=== PATIENT | male | born 1980 | race African-American/Black ===

== ENCOUNTER 2016-10-14 13:03 | Inpatient (IN) ==
[2016-10-14] MEDS ORDERED: LACTULOSE 20 GM/30 ML UDCUP PO PRN (15:48)
[2016-10-14] MEDS ORDERED: MYLANTA/LIDO VISC 2:1 300 ML BOTTLE SWISH/SWAL PRN (15:48)
[2016-10-14] MEDS ORDERED: BENZTROPINE 2 MG/2 ML AMP IV PRN (15:48)
[2016-10-14] MEDS ORDERED: MYLANTA/LIDO VISC 2:1 300 ML BOTTLE SWISH/SPIT PRN (15:48)
[2016-10-14] MEDS ORDERED: MAGNESIUM HYDROXIDE SUSP 30 ML UDCUP PO PRN (15:48)
[2016-10-14] MEDS ORDERED: chlorproMAZINE INJ 50 MG in SODIUM CHLORIDE 0.9% 100 ML IV PRN (15:48)
[2016-10-14] MEDS ORDERED: PROMETHAZINE INJ 25 MG in SODIUM CHLORIDE 0.9% 50 ML IV PRN (15:48)
[2016-10-14] MEDS ORDERED: guaiFENesin 200 MG/10 ML UDCUP PO PRN (15:48)
[2016-10-14] MEDS ORDERED: chlorproMAZINE INJ 25 MG in SODIUM CHLORIDE 0.9% 100 ML IV PRN (15:48)
[2016-10-14] MEDS ORDERED: LOPERAMIDE 2 MG CAPSULE PO PRN ×2 (15:48)
[2016-10-14] MEDS ORDERED: ONDANSETRON 4 MG/2 ML VIAL IV PRN (15:48)
[2016-10-14] MEDS ORDERED: TEMAZEPAM 7.5 MG CAPSULE PO PRN (15:48)
[2016-10-14] MEDS ORDERED: ACETAMINOPHEN 325 MG TABLET PO PRN (15:48)
[2016-10-14] MEDS ORDERED: chlorproMAZINE 25 MG TABLET PO PRN (15:48)
[2016-10-14] MEDS ORDERED: ALPRAZolam 0.25 MG TABLET PO PRN (15:48)
[2016-10-14] MEDS ORDERED: traMADol 50 MG TABLET PO PRN (15:48)
[2016-10-14] MEDS ORDERED: diphenhydrAMINE CAP 25 MG CAPSULE PO PRN (15:48)
[2016-10-14] MEDS ORDERED: ALUMINUM/MAGNES/SIMETH MAX STR 30 ML UDCUP PO PRN (15:48)
[2016-10-14] MEDS ORDERED: PALONOSETRON 0.25 MG/5 ML VIAL IV ONE (16:00)
[2016-10-14] MEDS ORDERED: FOSAPREPITANT 150 MG in SODIUM CHLORIDE 0.9% 100 ML IV ONE (16:00)
[2016-10-14] MEDS ORDERED: DEXAMETHASONE 4 MG/1 ML VIAL IV ONE (16:00)
[2016-10-14] MEDS: predniSONE 50 MG TABLET PO SCH (17:22)
[2016-10-14] MEDS: ETOPOSIDE IV SCH (18:10)
[2016-10-14] MEDS: SODIUM CHLORIDE 0.9% IV SCH ×2 (18:10→18:11)
[2016-10-14] MEDS: DOXORUBICIN IV SCH (18:11)
[2016-10-14] MEDS: VINCRISTINE IV SCH (18:11)
--- NOTE | 2016-10-15 09:04 | Oncology History&Physical ---
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 He is responding well at this point. We planned 6 cycles then PET scan. Continuing patient's current regimen of highly active antiretroviral therapy Current Visit: Yes History of Present Illness Chief complaint: Chemotherapy History of present illness: Mr. Valenzuela is a 36 year old male With HIV dating to at least 2009. 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 These treatments were performed in [facility]. Currently he is under treatment for a large cell lymphoma likely HIV related per outside pathologic consultation. He was gravely ill several months earlier but has slowly improved and is gained weight. His pleural effusions and ascites seem to have resolved. He denies any symptoms of congestive heart failure. He was seen yesterday as an initial office consultation and was admitted for cycle 5 chemotherapy Home Medications Medication Instructions Recorded Confirmed Type Dolutegravir Sodium [Tivicay] 50 mg PO BEDTIME 10/14/16 10/14/16 History Emtricitabine/Tenofov 200-300 1 tablet PO BEDTIME 10/14/16 10/14/16 History [Truvada] Allergies Allergy/AdvReac Type Severity Reaction Status Date / Time No Known Allergies Allergy Verified 10/14/16 15:46 Medical,Surgical,& Family Hx - Medical History Cardio: History of: Cardiovascular Problems (excessive fluid around the lungs) Renal: History of: Renal Failure (due to lymphoma of the abd) Gastrointestinal: History of: Bowel Obstruction (lymphoma in the abd) Other: History of: Cancer, HIV - Family History Family History: Reports;: Family Cancer (mother, grandfather,), Family Diabetes (4 aunts,3 uncles), Family Heart Disease (1 aunt, 1 uncle), Family Hypertension (3 uncles, 2 aunts) Denies;: Family Psychiatric Problems, Family Stroke - Social History Smoking Status: Former smoker - EENT Nose, mouth and throat: Absent: dysphagia, epistaxis - Cardiovascular Cardiovascular ROS IM: Absent: chest pain - Respiratory Respiratory: Absent: cough - Gastrointestinal Gastrointestinal: Absent: cramping - Genitourinary Genitourinary ROS male: Absent: difficulty urinating, dysuria Exam - Constitutional Vitals: Period Temp Pulse Resp BP Sys/Smith Pulse Ox Last 24 Hr 97.0 F-97.9 F 72-85 18-20 105-120/62-68 99-100 General appearance: normal weight, no acute distress - Head Head Exam: Present: normal inspection, normocephalic, atraumatic - Eye Eye Exam: Present: EOMI. Absent: conjunctival injection Pupils: Present: normal accommodation - ENT ENT exam: Present: normal external ear exam - Neck Neck exam: Absent: tenderness, thyromegaly - Respiratory Respiratory exam: Present: CTAB. Absent: accessory muscle use, chest wall tenderness - GI/Abdominal GI/Abdominal exam: Absent: ascites, distended, guarding - Extremities Exam Extremities exam: Present: normal capillary refill - Neurological Exam Neurological exam: Present: alert, oriented X3 - Psychiatric Psychiatric exam: Present: normal affect, normal mood - Skin Skin exam: Present: warm, dry
[2016-10-15] MEDS: predniSONE 50 MG TABLET PO SCH (09:42)
[2016-10-15] MEDS: DOXORUBICIN IV SCH (17:39)
[2016-10-15] MEDS: VINCRISTINE IV SCH (17:39)
[2016-10-15] MEDS: SODIUM CHLORIDE 0.9% IV SCH ×2 (17:39→17:42)
[2016-10-15] MEDS: ETOPOSIDE IV SCH (17:42)
[2016-10-16] MEDS: predniSONE 50 MG TABLET PO SCH (08:50)
--- NOTE | 2016-10-16 09:06 | Oncology Progress Note ---
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 He is responding well at this point. We planned 6 cycles then PET scan. Continuing patient's current regimen of highly active antiretroviral therapy Current Visit: Yes Oncology Subjective PN Interval history: Day 3 cycle 5 chemotherapy for CD20 negative HIV related large cell lymphoma. The patient remains nontoxic appearing. He is pleasant awake alert cooperative and interactive. He was ambulated in the halls saw him yesterday. He is afebrile. His lungs are clear to auscultation bilaterally. His abdomen is flat with no ascites or obvious organomegaly. Continuing infusional chemotherapy without modification at this time Exam - Constitutional Vitals: Period Temp Pulse Resp BP Sys/Smtih Pulse Ox Last 24 Hr 96.1 F-98.0 F 72-90 20-25 106-129/63-72 99-100
[2016-10-16] MEDS: ETOPOSIDE IV SCH (18:26)
[2016-10-16] MEDS: SODIUM CHLORIDE 0.9% IV SCH ×2 (18:26→18:27)
[2016-10-16] MEDS: VINCRISTINE IV SCH (18:27)
[2016-10-16] MEDS: DOXORUBICIN IV SCH (18:27)
[2016-10-17 05:57] LABS: Eosinophils % 0.1 % (0.00-10.9); Hematocrit 27.2 VOL% (42.0-52.0); Hemoglobin 8.6 GM/DL (14.0-18.0); Immature Granulocytes % 0.6 %; Immature Granulocytes Absolute 0.04 #; Lymphocytes # 1.3 10*3/uL (1.4-4.0); Lymphocytes % 18.9 % (21.2-54.2); Mean Corpuscular HGB Conc 31.6 GM/DL (32-36); Mean Corpuscular Hemoglobin 33 PG (27-34); Mean Corpuscular Volume 104.6 FL (87-102); Mean Platelet Volume 11.4 FL (9.6-12.0); Monocytes % 14.3 % (1.7-12.7); Neutrophils # 4.5 10*3/uL (1.4-7.4); Neutrophils % 66.1 % (38.7-73.9); Platelet Count 121 10*3/uL (130-400); Red Cell Distribution Width 17.2 % (9.3-17.3); White Blood Count 6.7 10*3/uL (4.5-13.71)
[2016-10-17 06:56] LABS: Bilirubin,Total 0.4 MG/DL (0.2-1.0); Calcium 8.1 MG/DL (8.5-10.1); Magnesium 1.9 MG/DL (1.8-2.4); Osmolality,Calculated 293.7 MOS/KG (273-304); Potassium 4.2 MMOL/L (3.5-5.1); Total Protein 6.2 G/DL (6.4-8.3)
[2016-10-17] MEDS: predniSONE 50 MG TABLET PO SCH (09:24)
--- NOTE | 2016-10-17 09:25 | Oncology Progress Note ---
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 He is responding well at this point. We planned 6 cycles then PET scan. Continuing patient's current regimen of highly active antiretroviral therapy Current Visit: Yes Oncology Subjective PN Interval history: Today for chemotherapy for disseminated and aggressive HIV related lymphoma. Patient is without complaints. To new chemotherapy with benign physical examination at this time with plans for discharge tomorrow Exam - Constitutional Vitals: Period Temp Pulse Resp BP Sys/Smith Pulse Ox Last 24 Hr 96.9 F-97.6 F 58-69 18-20 111-127/61-74 99-100 Results - Labs CBC & BMP: 10/17/16 05:00 10/17/16 05:00
[2016-10-17] MEDS: SODIUM CHLORIDE 0.9% IV SCH ×2 (18:57→18:58)
[2016-10-17] MEDS: ETOPOSIDE IV SCH (18:57)
[2016-10-17] MEDS: VINCRISTINE IV SCH (18:58)
[2016-10-17] MEDS: DOXORUBICIN IV SCH (18:58)
--- NOTE | 2016-10-18 05:19 | Discharge Summary ---
Hospital Course - Hospital Course Hospital Course: Patient with HIV related lymphoma admitted for cycle #5 Epoch infusional chemotherapy. He also gives a history of previous Kaposi's sarcoma with both chemo and radiation. He is tolerating the therapy well with no adverse events. Labs reviewed from yesterday with some degree of anemia. His physical exam at this time is unremarkable. He will receive Neulasta tomorrow with an appointment made for repeat chemotherapy evaluation on November 04. 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 Status: Acute Specialty Discharge - Follow Up or Referrals Follow up with: Gurmeet Kennedy MD [Primary Care Provider] - (HAVE LAB WORK AT DR KENNEDY OFFICE ON NOV.04 ANYTIME BETWEEN 730AM-330PM) Discharge Plan - Discharge Medications New HYDROcodone/ACETAMIN 5-325 [Gazelle 5-325] 1 tablet PO Q4H PRN #30 tablet PRN Reason: Pain Moderate (4-7) Continue Emtricitabine/Tenofov 200-300 [Truvada] 1 tablet PO BEDTIME Dolutegravir Sodium [Tivicay] 50 mg PO BEDTIME - Follow Up or Referral Follow Up: Gurmeet Kennedy MD [Primary Care Provider] - (HAVE LAB WORK AT DR KENNEDY OFFICE ON NOV.04 ANYTIME BETWEEN 730AM-330PM) - Forms/Instructions Exam - Constitutional Vitals: Period Temp Pulse Resp BP Sys/Smith Pulse Ox Last 24 Hr 97.1 F-98.4 F 57-73 18-20 112-125/64-76 99-100 Discharge Results Procedures and tests throughout hospitalization: Pending Orders 10/16/16 19:00 HIV-1 RNA Quantification, P Routine 10/17/16 05:00 CD4 T-Cell Count Routine Labs on day of discharge: Labs from last 24 hours 10/17/16 10/17/16 05:00 05:00 WBC 6.7 RBC 2.60 L Hgb 8.6 L Hct 27.2 L MCV 104.6 H MCH 33 MCHC 31.6 L RDW 17.2 Plt Count 121 L MPV 11.4 Neut % (Auto) 66.1 Lymph % (Auto) 18.9 L [place] % (Auto) 14.3 H Eos % (Auto) 0.1 Baso % (Auto) 0.0 Neut # (Auto) 4.5 Lymph # (Auto) 1.3 L [place] # (Auto) 1.0 H Eos # (Auto) 0.0 Baso # (Auto) 0.0 Immature Gran % 0.6 Nucleated RBC % 0.0 Immature Gran # 0.04 Nucleated RBCs # 0.00 Sodium 145 Potassium 4.2 Chloride 115 H Carbon Dioxide 21 Anion Gap 13.2 BUN 32 H Creatinine 1.30 GFR Calculation 90 BUN/Creatinine Ratio 24.00 H Glucose 82 Calculated Osmolality 293.7 Calcium 8.1 L Magnesium 1.9 Total Bilirubin 0.40 AST 9 ALT 17 Alkaline Phosphatase 81 Lactate Dehydrogenase 99 Total Protein 6.2 L Albumin 3.0 L Globulin 3.2 Albumin/Globulin Ratio 0.9 L DS: Provider Date of admission: 10/14/16 15:48 Primary care physician: Gurmeet Kennedy MD Attending physician on admission: Gurmeet Kennedy MD Consults: 10/14/16 16:25 Consult to Pharmacy [CONS] Routine Reason for Pharmacy Consult: Adjust Meds Renal Funct Discharging clinician: Gurmeet Kennedy MD
[2016-10-18] MEDS ORDERED: SODIUM CHLORIDE 0.9% IV ONE (09:00)
[2016-10-18] MEDS ORDERED: CYCLOPHOSPHAMIDE IV ONE (09:00)
[2016-10-18] MEDS: predniSONE 50 MG TABLET PO SCH (10:53)
[2016-10-18] MEDS ORDERED: predniSONE 50 MG TABLET PO SCH (11:00)
[2016-10-18 20:33] VITALS: BP 130/77
[2016-10-19 15:30] LABS: 4/8 Ratio 0.2 (>=0.9)
== END 2016-10-18 23:10 | disposition home or self-care (01) | DRG 846 ==
LOC: N.4E 15:15
PROVIDERS: ADMIT Specialist; ATTEND Specialist

== ENCOUNTER 2017-11-18 15:27 | Inpatient (IN) ==
[2017-11-18] MEDS ORDERED: ONDANSETRON 4 MG/2 ML VIAL IV STA (17:12)
[2017-11-18] MEDS ORDERED: HYDROmorphone 2 MG/1 ML VIAL IV STA (17:12)
[2017-11-18] MEDS ORDERED: KETOROLAC 30 MG/1 ML VIAL IV STA (17:12)
[2017-11-18] MEDS ORDERED: SODIUM CHLORIDE 0.9% 1,000 ML IV STA (17:12)
[2017-11-18] MEDS ORDERED: KETOROLAC 30 MG/1 ML VIAL ONE (17:18)
[2017-11-18] MEDS ORDERED: HYDROmorphone 2 MG/1 ML VIAL ONE (17:18)
[2017-11-18] MEDS ORDERED: ONDANSETRON 4 MG/2 ML VIAL ONE (17:19)
[2017-11-18 17:23] LABS: Basophils % 0.4 % (0.0-0.8); Eosinophils # 0.1 10*3/uL (0.0-0.87); Eosinophils % 1.9 % (0.00-10.9); Hematocrit 33.4 VOL% (42.0-52.0); Hemoglobin 11.7 GM/DL (14.0-18.0); Immature Granulocytes % 0.6 %; Immature Granulocytes Absolute 0.03 #; Lymphocytes # 1.2 10*3/uL (1.4-4.0); Lymphocytes % 25.7 % (21.2-54.2); Mean Corpuscular Hemoglobin 32 PG (27-34); Mean Corpuscular Volume 92.5 FL (87-102); Mean Platelet Volume 12.4 FL (9.6-12.0); Monocytes # 1.2 10*3/uL (0.11-0.8); Monocytes % 24.9 % (1.7-12.7); Neutrophils # 2.2 10*3/uL (1.4-7.4); Neutrophils % 46.5 % (38.7-73.9); Red Blood Count 3.61 MC/CUMM (3.8-5.5); Red Cell Distribution Width 12.9 % (9.3-17.3); White Blood Count 4.7 T/CUMM (4-12)
[2017-11-18 17:25] LABS: Apearance,Urine CLOUDY (Clear); Bilirubin,Urine Negative (Negative); Blood, Urine Large mg/dL (Negative); Glucose,Urine (UA) 50 mg/dL (Negative); Ketones,Urine 5 mg/dL (Negative); Nitrite,Urine Negative (Negative); Protein,Urine >=500 MG/DL; RBC,Urine 1370 /HPF (0-4); Squamous Epithelial Cell,Urine Occasional /HPF (0-10); Urine Color Red (Yellow); Urine Specific Gravity 1.018 (1.001-1.035); Urine Urobilinogen < 2.0 EU/DL (0.2-1.0); WBC,Urine 11 /HPF (0-6)
[2017-11-18 17:32] LABS: Platelet Count 91 T/CUMM (130-400)
[2017-11-18 17:43] LABS: Albumin 3.8 G/DL (3.4-5.0); Bilirubin,Total 0.5 MG/DL (0.2-1.0); Calcium 8.6 MG/DL (8.5-10.1); Osmolality,Calculated 280.8 MOS/KG (273-304); Potassium 5.1 MMOL/L (3.5-5.1); Total Protein 9.6 G/DL (6.4-8.3)
[2017-11-18 18:13] LABS: Lactic Acid 0.9 MMOL/L (0.4-2.0)
[2017-11-18 18:21] LABS: Platelet Estimate Decreased
[2017-11-18] MEDS ORDERED: PROMETHAZINE INJ 25 MG in SODIUM CHLORIDE 0.9% 50 ML IV PRN (19:50)
[2017-11-18] MEDS ORDERED: ACETAMINOPHEN 325 MG TABLET PO PRN (19:50)
[2017-11-18] MEDS ORDERED: MYLANTA/LIDO VISC 2:1 300 ML BOTTLE SWISH/SPIT PRN (19:50)
[2017-11-18] MEDS ORDERED: MAGNESIUM HYDROXIDE SUSP 30 ML UDCUP PO PRN (19:50)
[2017-11-18] MEDS ORDERED: ONDANSETRON 4 MG/2 ML VIAL IV PRN (19:50)
[2017-11-18] MEDS ORDERED: ALPRAZolam 0.25 MG TABLET PO PRN (19:50)
[2017-11-18] MEDS ORDERED: ALUMINUM/MAGNES/SIMETH MAX STR 30 ML UDCUP PO PRN (19:50)
[2017-11-18] MEDS ORDERED: traMADol 50 MG TABLET PO PRN (19:50)
[2017-11-18] MEDS ORDERED: MYLANTA/LIDO VISC 2:1 300 ML BOTTLE SWISH/SWAL PRN (19:50)
[2017-11-18] MEDS ORDERED: LACTULOSE 20 GM/30 ML UDCUP PO PRN (19:50)
[2017-11-18] MEDS: SODIUM CHLORIDE 0.9% 1,000 ML IV SCH (20:59)
[2017-11-18] MEDS: TEMAZEPAM 7.5 MG CAPSULE PO PRN (21:03)
[2017-11-18 22:31] LABS: Albumin 3.3 G/DL (3.4-5.0); Bilirubin,Total 0.5 MG/DL (0.2-1.0); Calcium 7.9 MG/DL (8.5-10.1); Osmolality,Calculated 287.4 MOS/KG (273-304); Potassium 5.1 MMOL/L (3.5-5.1); Total Protein 8.3 G/DL (6.4-8.3); Uric Acid 15.8 MG/DL (3.5-7.2)
[2017-11-18 22:42] LABS: Basophils % 0.5 % (0.0-0.8); Eosinophils # 0.1 10*3/uL (0.0-0.87); Eosinophils % 2.7 % (0.00-10.9); Hematocrit 26.8 VOL% (42.0-52.0); Hemoglobin 9.2 GM/DL (14.0-18.0); Immature Granulocytes % 0.5 %; Immature Granulocytes Absolute 0.02 #; Lymphocytes # 1.1 10*3/uL (1.4-4.0); Lymphocytes % 28.1 % (21.2-54.2); Mean Corpuscular HGB Conc 34.3 GM/DL (32-36); Mean Corpuscular Hemoglobin 31 PG (27-34); Mean Corpuscular Volume 91.5 FL (87-102); Mean Platelet Volume 12.2 FL (9.6-12.0); Monocytes % 25.7 % (1.7-12.7); Neutrophils # 1.7 10*3/uL (1.4-7.4); Neutrophils % 42.5 % (38.7-73.9); Platelet Count 84 T/CUMM (130-400); Red Blood Count 2.93 MC/CUMM (3.8-5.5); White Blood Count 4.1 T/CUMM (4-12)
[2017-11-19 01:44] LABS: Eosinophils 3 % (0-10); Lymphocytes 26 % (20-55); Segmented Neutrophils 53 % (50-85); Total Cells Counted 100
[2017-11-19 01:45] LABS: Platelet Estimate Decreased
[2017-11-19 01:47] LABS: Hypochromasia Slight
[2017-11-19 04:34] LABS: Apearance,Urine CLOUDY (Clear); Bilirubin,Urine Negative (Negative); Blood, Urine Moderate mg/dL (Negative); Glucose,Urine (UA) 50 mg/dL (Negative); Ketones,Urine 5 mg/dL (Negative); Nitrite,Urine Negative (Negative); Protein,Urine 100 MG/DL; RBC,Urine 1746 /HPF (0-4); Urine Color Red (Yellow); Urine Specific Gravity 1.013 (1.001-1.035); Urine Urobilinogen < 2.0 EU/DL (0.2-1.0); WBC,Urine 175 /HPF (0-6)
[2017-11-19] MEDS: SODIUM CHLORIDE 0.9% 1,000 ML IV SCH ×2 (07:00→19:55)
[2017-11-19] MEDS ORDERED: MIDAZOLAM 2 MG/2 ML VIAL IV ONE (14:26)
[2017-11-19] MEDS ORDERED: DIAZEPAM 5 MG TABLET PO ONE (14:26)
[2017-11-19] MEDS ORDERED: fentaNYL 100 MCG/2 ML VIAL IV ONE (14:26)
[2017-11-19] MEDS ORDERED: fentaNYL 100 MCG/2 ML VIAL ONE (15:24)
[2017-11-19] MEDS ORDERED: MIDAZOLAM 2 MG/2 ML VIAL ONE (15:25)
[2017-11-19] MEDS ORDERED: LEVOFLOXACIN INJ 500 MG in PREMIX 1 EACH IV ONE (15:56)
[2017-11-19] MEDS ORDERED: LEVOFLOXACIN INJ 100 ML IV ONE (15:58)
[2017-11-19] MEDS: TEMAZEPAM 7.5 MG CAPSULE PO PRN (21:32)
[2017-11-20 05:41] LABS: Basophils % 0.3 % (0.0-0.8); Eosinophils # 0.1 10*3/uL (0.0-0.87); Eosinophils % 2.6 % (0.00-10.9); Hematocrit 25.6 VOL% (42.0-52.0); Hemoglobin 8.7 GM/DL (14.0-18.0); Immature Granulocytes % 0.6 %; Immature Granulocytes Absolute 0.02 #; Lymphocytes # 0.9 10*3/uL (1.4-4.0); Lymphocytes % 28.1 % (21.2-54.2); Mean Corpuscular Hemoglobin 31 PG (27-34); Mean Corpuscular Volume 92.4 FL (87-102); Mean Platelet Volume 11.4 FL (9.6-12.0); Monocytes % 31.9 % (1.7-12.7); Neutrophils # 1.1 10*3/uL (1.4-7.4); Neutrophils % 36.5 % (38.7-73.9); Red Blood Count 2.77 MC/CUMM (3.8-5.5); White Blood Count 3.1 T/CUMM (4-12)
[2017-11-20 05:43] LABS: Platelet Count 86 T/CUMM (130-400)
[2017-11-20 06:00] LABS: Giant Platelets Few; Hypochromasia 1+; Platelet Estimate Decreased
[2017-11-20 06:01] LABS: Microcytosis Slight
[2017-11-20 06:10] LABS: Albumin 2.8 G/DL (3.4-5.0); Bilirubin,Total 0.5 MG/DL (0.2-1.0); Calcium 8.4 MG/DL (8.5-10.1); Osmolality,Calculated 300.7 MOS/KG (273-304); Potassium 4.8 MMOL/L (3.5-5.1); Total Protein 7.7 G/DL (6.4-8.3); Uric Acid 15.6 MG/DL (3.5-7.2)
[2017-11-20] MEDS: SODIUM CHLORIDE 0.9% 1,000 ML IV SCH (06:24)
[2017-11-20 07:22] LABS: Apearance,Urine CLEAR (Clear); Bacteria,Urine Occasional /HPF (Few); Bilirubin,Urine Negative (Negative); Blood, Urine Large mg/dL (Negative); Glucose,Urine (UA) Negative (Negative); Ketones,Urine Negative (Negative); Nitrite,Urine Negative (Negative); Protein,Urine Negative; RBC,Urine 18 /HPF (0-4); Urine Color Straw (Yellow); Urine Specific Gravity 1.005 (1.001-1.035); Urine Urobilinogen < 2.0 EU/DL (0.2-1.0); WBC,Urine 2 /HPF (0-6)
[2017-11-20] MEDS ORDERED: HYDROmorphone 2 MG/1 ML VIAL IV PRN (17:41)
[2017-11-20] MEDS: HYDROmorphone 2 MG/1 ML VIAL IV PRN (18:02)
[2017-11-21] MEDS: HYDROmorphone 2 MG/1 ML VIAL IV PRN ×3 (00:43→15:18)
[2017-11-21 05:28] LABS: Basophils % 0.2 % (0.0-0.8); Eosinophils # 0.1 10*3/uL (0.0-0.87); Eosinophils % 2.2 % (0.00-10.9); Hematocrit 26.8 VOL% (42.0-52.0); Hemoglobin 9.2 GM/DL (14.0-18.0); Immature Granulocytes % 0.4 %; Immature Granulocytes Absolute 0.02 #; Lymphocytes # 1.4 10*3/uL (1.4-4.0); Lymphocytes % 26.5 % (21.2-54.2); Mean Corpuscular HGB Conc 34.3 GM/DL (32-36); Mean Corpuscular Hemoglobin 32 PG (27-34); Mean Corpuscular Volume 92.7 FL (87-102); Mean Platelet Volume 10.9 FL (9.6-12.0); Monocytes # 0.9 10*3/uL (0.11-0.8); Monocytes % 17.8 % (1.7-12.7); Neutrophils # 2.7 10*3/uL (1.4-7.4); Neutrophils % 52.9 % (38.7-73.9); Platelet Count 98 T/CUMM (130-400); Red Blood Count 2.89 MC/CUMM (3.8-5.5); Red Cell Distribution Width 13.2 % (9.3-17.3); White Blood Count 5.1 T/CUMM (4-12)
[2017-11-21 05:48] LABS: Band Neutrophils 4 % (0-10); Eosinophils 2 % (0-10); Lymphocytes 31 % (20-55); Macrocytosis 1+; Platelet Estimate Decreased; Segmented Neutrophils 55 % (50-85); Total Cells Counted 100
[2017-11-21 06:06] LABS: Bilirubin,Total 0.7 MG/DL (0.2-1.0); Calcium 8.5 MG/DL (8.5-10.1); Osmolality,Calculated 291.7 MOS/KG (273-304); Total Protein 8.3 G/DL (6.4-8.3)
[2017-11-21] MEDS ORDERED: ALLOPURINOL 100 MG TABLET PO SCH (09:30)
[2017-11-21] MEDS ORDERED: SODIUM CHLORIDE 0.45% 1,000 ML IV SCH (09:30)
[2017-11-21 16:54] VITALS: BP 125/79
[2017-11-21] MEDS ORDERED: HEPARIN LOCK FLUSH 500 UNIT/5 ML SYRINGE IV ONE (17:48)
== END 2017-11-21 17:58 | disposition hospice, home (50) | DRG 682 ==
LOC: N.ED 15:27 → N.EDINP 19:31 → N.4E 19:47
PROVIDERS: ADMIT Specialist; ATTEND Specialist

== ENCOUNTER 2018-01-12 17:20 | Inpatient (IN) ==
[2018-01-12 20:31] LABS: Basophils % 0.1 % (0.0-0.8); Hematocrit 19.7 VOL% (42.0-52.0); Hemoglobin 6.5 GM/DL (14.0-18.0); Immature Granulocytes % 2.8 %; Immature Granulocytes Absolute 0.19 #; Lymphocytes # 1.5 10*3/uL (1.4-4.0); Lymphocytes % 21.6 % (21.2-54.2); Mean Corpuscular Hemoglobin 28 PG (27-34); Mean Corpuscular Volume 84.5 FL (87-102); Mean Platelet Volume 12.3 FL (9.6-12.0); Monocytes % 43.9 % (1.7-12.7); Neutrophils # 2.1 10*3/uL (1.4-7.4); Neutrophils % 31.6 % (38.7-73.9); Platelet Count 100 T/CUMM (130-400); Red Blood Count 2.33 MC/CUMM (3.8-5.5); Red Cell Distribution Width 24.4 % (9.3-17.3); White Blood Count 6.8 T/CUMM (4-12)
[2018-01-12 20:35] LABS: INR 1.1
[2018-01-12 20:44] LABS: Albumin 2.1 G/DL (3.4-5.0); Bilirubin,Total 0.4 MG/DL (0.2-1.0); Calcium 7.8 MG/DL (8.5-10.1); Osmolality,Calculated 257.1 MOS/KG (273-304); Potassium 4.2 MMOL/L (3.5-5.1); Total Protein 6.5 G/DL (6.4-8.3)
[2018-01-12] MEDS ORDERED: SODIUM CHLORIDE 0.9% 1,000 ML IV PRN ×2 (21:08→23:40)
[2018-01-12] MEDS ORDERED: MORPHINE 4 MG/1 ML VIAL IV STA (21:31)
[2018-01-12] MEDS ORDERED: ONDANSETRON 4 MG/2 ML VIAL IV STA (21:32)
[2018-01-12] MEDS ORDERED: ONDANSETRON 4 MG/2 ML VIAL ONE (21:44)
[2018-01-12] MEDS ORDERED: MORPHINE 4 MG/1 ML VIAL ONE (21:44)
[2018-01-12 22:56] LABS: Eosinophils 2 % (0-10); Lymphocytes 18 % (20-55); Myelocytes 3 %; Segmented Neutrophils 46 % (50-85); Total Cells Counted 100
[2018-01-12 22:58] LABS: Platelet Estimate Decreased; Polychromasia Few
[2018-01-12 23:00] LABS: Anisocytosis 1+
[2018-01-12] MEDS ORDERED: ACETAMINOPHEN 325 MG TABLET PO PRN (23:35)
[2018-01-13] MEDS ORDERED: ACETAMINOPHEN 325 MG TABLET ONE (00:16)
[2018-01-13] MEDS ORDERED: Emtricitabine/Tenofov Alafenam [Descovy 200-25 Mg Tablet] PO SCH (00:28)
[2018-01-13] MEDS ORDERED: (Dolutegravir Sodium [Tivicay] 50 MG) PO SCH (00:28)
[2018-01-13] MEDS: SODIUM CHLORIDE 0.9% 1,000 ML IV SCH ×2 (00:48→13:33)
[2018-01-13] MEDS: MORPHINE 4 MG/1 ML VIAL IV PRN ×3 (03:59→21:29)
[2018-01-13] MEDS ORDERED: CEFEPIME 1,000 MG in SYRINGE 1 EACH IV SCH (08:00)
[2018-01-13] MEDS: PANTOPRAZOLE 40 MG TABLET PO SCH (08:14)
[2018-01-13] MEDS: ALLOPURINOL 100 MG TABLET PO SCH (08:14)
[2018-01-13] MEDS: FERROUS SULFATE 325 MG TABLET PO SCH (08:14)
[2018-01-13] MEDS: ACETAMINOPHEN 500 MG TABLET PO PRN (08:14)
[2018-01-13 08:38] LABS: Basophils % 0.3 % (0.0-0.8); Hematocrit 23.3 VOL% (42.0-52.0); Immature Granulocytes Absolute 0.16 #; Lymphocytes # 1.3 10*3/uL (1.4-4.0); Lymphocytes % 16.9 % (21.2-54.2); Mean Corpuscular HGB Conc 33.9 GM/DL (32-36); Mean Corpuscular Hemoglobin 29 PG (27-34); Mean Platelet Volume 12.1 FL (9.6-12.0); Monocytes # 2.9 10*3/uL (0.11-0.8); Monocytes % 36.7 % (1.7-12.7); Neutrophils # 3.5 10*3/uL (1.4-7.4); Neutrophils % 44.1 % (38.7-73.9); Platelet Count 91 T/CUMM (130-400); Red Blood Count 2.74 MC/CUMM (3.8-5.5); Red Cell Distribution Width 21.1 % (9.3-17.3); White Blood Count 7.9 T/CUMM (4-12)
[2018-01-13 08:39] LABS: Hemoglobin 7.9 GM/DL (14.0-18.0)
[2018-01-13 09:02] LABS: Calcium 7.6 MG/DL (8.5-10.1); Osmolality,Calculated 261.7 MOS/KG (273-304); Potassium 4.2 MMOL/L (3.5-5.1)
[2018-01-13 09:07] LABS: Band Neutrophils 3 % (0-10); Giant Platelets Few; Hypochromasia 1+; Lymphocytes 8 % (20-55); Ovalocytes Slight; Platelet Estimate Decreased; Segmented Neutrophils 50 % (50-85); Total Cells Counted 100
[2018-01-13 09:08] LABS: Microcytosis 1+
[2018-01-13 09:19] LABS: Amorphous Crystals,Urine Occasional /HPF (Few); Apearance,Urine CLOUDY (Clear); Bilirubin,Urine Negative (Negative); Blood, Urine Moderate mg/dL (Negative); Glucose,Urine (UA) Negative (Negative); Ketones,Urine 5 mg/dL (Negative); Mucus,Urine Occasional /LPF (Occasional); Nitrite,Urine Negative (Negative); Protein,Urine 100 MG/DL; RBC,Urine 12 /HPF (0-4); Urine Color Yellow (Yellow); Urine Specific Gravity 1.008 (1.001-1.035); Urine Urobilinogen < 2.0 EU/DL (0.2-1.0)
[2018-01-13] MEDS: VANCOMYCIN INJ 1,000 MG in SODIUM CHLORIDE 0.9% 250 ML IV SCH ×2 (09:22→21:25)
[2018-01-13] MEDS ORDERED: MAGNESIUM SULF RIDER 4 GM in PREMIX 1 EACH IV PRN (09:37)
[2018-01-13] MEDS ORDERED: SODIUM CHLORIDE 0.9% 1,000 ML IV PRN (09:38)
[2018-01-13] MEDS: MAGNESIUM SULF RIDER 2 GM in PREMIX 1 EACH IV PRN (13:35)
[2018-01-13] MEDS: CEFEPIME 1,000 MG in SYRINGE 1 EACH IV SCH (17:28)
[2018-01-13] MEDS: ONDANSETRON 4 MG/2 ML VIAL IV PRN (21:29)
[2018-01-13] MEDS ORDERED: metroNIDAZOLE INJ 500 MG in PREMIX 1 EACH IV SCH (23:00)
[2018-01-14] MEDS: CEFEPIME 1,000 MG in SYRINGE 1 EACH IV SCH ×2 (01:45→09:17)
[2018-01-14] MEDS: SODIUM CHLORIDE 0.9% 1,000 ML IV SCH ×3 (02:10→18:16)
[2018-01-14] MEDS: ONDANSETRON 4 MG/2 ML VIAL IV PRN (05:20)
[2018-01-14] MEDS: MORPHINE 4 MG/1 ML VIAL IV PRN ×3 (05:23→18:34)
[2018-01-14 05:38] LABS: Basophils % 0.1 % (0.0-0.8); Eosinophils % 0.1 % (0.00-10.9); Hematocrit 23.9 VOL% (42.0-52.0); Immature Granulocytes % 2.5 %; Immature Granulocytes Absolute 0.19 #; Lymphocytes # 1.4 10*3/uL (1.4-4.0); Lymphocytes % 18.2 % (21.2-54.2); Mean Corpuscular HGB Conc 33.5 GM/DL (32-36); Mean Corpuscular Hemoglobin 29 PG (27-34); Mean Corpuscular Volume 85.1 FL (87-102); Mean Platelet Volume 10.9 FL (9.6-12.0); Monocytes % 38.1 % (1.7-12.7); Neutrophils # 3.2 10*3/uL (1.4-7.4); Red Blood Count 2.81 MC/CUMM (3.8-5.5); Red Cell Distribution Width 20.6 % (9.3-17.3); White Blood Count 7.8 T/CUMM (4-12)
[2018-01-14 05:41] LABS: Platelet Count 74 T/CUMM (130-400)
[2018-01-14 06:13] LABS: Albumin 1.7 G/DL (3.4-5.0); Bilirubin,Total 0.5 MG/DL (0.2-1.0); Calcium 7.6 MG/DL (8.5-10.1); Osmolality,Calculated 270.1 MOS/KG (273-304); Potassium 3.9 MMOL/L (3.5-5.1); Total Protein 5.5 G/DL (6.4-8.3)
[2018-01-14 06:20] LABS: Band Neutrophils 15 % (0-10); Lymphocytes 8 % (20-55); Segmented Neutrophils 64 % (50-85); Total Cells Counted 100
[2018-01-14 06:21] LABS: Anisocytosis 1+; Poikilocytosis 1+
[2018-01-14] MEDS: FERROUS SULFATE 325 MG TABLET PO SCH (09:16)
[2018-01-14] MEDS: PANTOPRAZOLE 40 MG TABLET PO SCH (09:17)
[2018-01-14] MEDS: ALLOPURINOL 100 MG TABLET PO SCH (09:17)
[2018-01-14] MEDS: VANCOMYCIN INJ 1,000 MG in SODIUM CHLORIDE 0.9% 250 ML IV SCH (09:25)
[2018-01-14] MEDS: VANCOMYCIN 50 MG/ML 60 ML/BOTTLE PO SCH ×3 (09:59→21:08)
[2018-01-14 12:15] LABS: Troponin I Only < 0.015 NG/ML (0.00-0.045)
[2018-01-15] MEDS: MORPHINE 4 MG/1 ML VIAL IV PRN ×4 (00:14→21:08)
[2018-01-15] MEDS: SODIUM CHLORIDE 0.9% 1,000 ML IV SCH ×4 (00:20→22:07)
[2018-01-15] MEDS: ACETAMINOPHEN 500 MG TABLET PO PRN ×2 (00:52→18:00)
[2018-01-15] MEDS: VANCOMYCIN 50 MG/ML 60 ML/BOTTLE PO SCH ×4 (03:24→21:07)
[2018-01-15 03:50] LABS: Basophils % 0.1 % (0.0-0.8); Hematocrit 24.7 VOL% (42.0-52.0); Hemoglobin 8.2 GM/DL (14.0-18.0); Immature Granulocytes % 2.5 %; Immature Granulocytes Absolute 0.25 #; Lymphocytes % 19.7 % (21.2-54.2); Mean Corpuscular HGB Conc 33.2 GM/DL (32-36); Mean Corpuscular Hemoglobin 29 PG (27-34); Mean Corpuscular Volume 86.1 FL (87-102); Mean Platelet Volume 12.5 FL (9.6-12.0); Monocytes # 3.6 10*3/uL (0.11-0.8); Monocytes % 35.6 % (1.7-12.7); Neutrophils # 4.2 10*3/uL (1.4-7.4); Neutrophils % 42.1 % (38.7-73.9); Red Blood Count 2.87 MC/CUMM (3.8-5.5); Red Cell Distribution Width 20.7 % (9.3-17.3)
[2018-01-15 03:52] LABS: Platelet Count 70 T/CUMM (130-400)
[2018-01-15 04:20] LABS: Osmolality,Calculated 273.1 MOS/KG (273-304); Potassium 3.9 MMOL/L (3.5-5.1)
[2018-01-15 05:00] LABS: Band Neutrophils 1 % (0-10); Eosinophils 1 % (0-10); Hypochromasia 1+; Lymphocytes 14 % (20-55); Ovalocytes Slight; Platelet Estimate Decreased; Segmented Neutrophils 60 % (50-85); Total Cells Counted 100
[2018-01-15 05:01] LABS: Giant Platelets Few; Microcytosis Slight
[2018-01-15] MEDS: MAGNESIUM SULF RIDER 2 GM in PREMIX 1 EACH IV PRN (07:22)
[2018-01-15] MEDS: FERROUS SULFATE 325 MG TABLET PO SCH (09:58)
[2018-01-15] MEDS: PANTOPRAZOLE 40 MG TABLET PO SCH (09:58)
[2018-01-15] MEDS: ALLOPURINOL 100 MG TABLET PO SCH (09:58)
[2018-01-16] MEDS: MORPHINE 4 MG/1 ML VIAL IV PRN ×4 (01:57→20:35)
[2018-01-16] MEDS: VANCOMYCIN 50 MG/ML 60 ML/BOTTLE PO SCH ×4 (03:48→21:12)
[2018-01-16] MEDS: ACETAMINOPHEN 500 MG TABLET PO PRN ×2 (03:59→16:56)
[2018-01-16 04:18] LABS: Basophils % 0.2 % (0.0-0.8); Hemoglobin 7.9 GM/DL (14.0-18.0); Immature Granulocytes % 2.4 %; Immature Granulocytes Absolute 0.22 #; Lymphocytes # 1.8 10*3/uL (1.4-4.0); Mean Corpuscular HGB Conc 32.9 GM/DL (32-36); Mean Corpuscular Hemoglobin 29 PG (27-34); Mean Corpuscular Volume 86.6 FL (87-102); Mean Platelet Volume 12.4 FL (9.6-12.0); Monocytes # 3.3 10*3/uL (0.11-0.8); Neutrophils # 3.7 10*3/uL (1.4-7.4); Neutrophils % 41.4 % (38.7-73.9); Platelet Count 47 T/CUMM (130-400); Red Blood Count 2.77 MC/CUMM (3.8-5.5); Red Cell Distribution Width 21.2 % (9.3-17.3); White Blood Count 9.1 T/CUMM (4-12)
[2018-01-16 04:32] LABS: Calcium 7.1 MG/DL (8.5-10.1); Potassium 3.9 MMOL/L (3.5-5.1)
[2018-01-16 04:57] LABS: Band Neutrophils 2 % (0-10); Eosinophils 1 % (0-10); Lymphocytes 16 % (20-55); Segmented Neutrophils 51 % (50-85); Total Cells Counted 100
[2018-01-16 04:59] LABS: Giant Platelets Few; Hypochromasia 1+; Ovalocytes Slight; Platelet Estimate Decreased
[2018-01-16 05:00] LABS: Microcytosis Slight
[2018-01-16] MEDS: MAGNESIUM SULF RIDER 2 GM in PREMIX 1 EACH IV PRN (05:09)
[2018-01-16] MEDS: ALLOPURINOL 100 MG TABLET PO SCH ×2 (07:55→08:09)
[2018-01-16] MEDS: FERROUS SULFATE 325 MG TABLET PO SCH ×2 (07:55→08:08)
[2018-01-16] MEDS: PANTOPRAZOLE 40 MG TABLET PO SCH ×2 (07:56→08:09)
[2018-01-16] MEDS ORDERED: SIMETHICONE CHEW 125 MG TABLET PO PRN (10:11)
[2018-01-16] MEDS ORDERED: DOCUSATE SODIUM 100 MG CAPSULE PO PRN (10:17)
[2018-01-16] MEDS: SODIUM CHLORIDE 0.9% 1,000 ML IV SCH (10:18)
[2018-01-16] MEDS: SUCRALFATE 1 GM/10 ML UDCUP PO SCH ×3 (10:55→20:36)
[2018-01-16] MEDS: SULFAMETHOX/TRIMETHOPRIM 800-160 MG TABLET PO SCH (12:06)
[2018-01-16] MEDS ORDERED: ADENOSINE 6 MG/2 ML VIAL IV ONE (16:22)
[2018-01-16] MEDS: METOPROLOL TARTRATE 25 MG TABLET PO SCH (20:36)
[2018-01-17] MEDS: VANCOMYCIN 50 MG/ML 60 ML/BOTTLE PO SCH ×3 (03:09→15:38)
[2018-01-17] MEDS: MORPHINE 4 MG/1 ML VIAL IV PRN ×2 (04:09→10:00)
[2018-01-17] MEDS: ACETAMINOPHEN 500 MG TABLET PO PRN (04:37)
[2018-01-17 05:41] LABS: Hematocrit 22.7 VOL% (42.0-52.0); Hemoglobin 7.7 GM/DL (14.0-18.0); Immature Granulocytes % 2.5 %; Immature Granulocytes Absolute 0.29 #; Lymphocytes % 16.8 % (21.2-54.2); Mean Corpuscular HGB Conc 33.9 GM/DL (32-36); Mean Corpuscular Hemoglobin 29 PG (27-34); Mean Corpuscular Volume 84.1 FL (87-102); Monocytes # 4.5 10*3/uL (0.11-0.8); Monocytes % 38.5 % (1.7-12.7); Neutrophils % 42.2 % (38.7-73.9); Platelet Count 43 T/CUMM (130-400); Red Cell Distribution Width 21.1 % (9.3-17.3); White Blood Count 11.7 T/CUMM (4-12)
[2018-01-17 06:06] LABS: Calcium 7.1 MG/DL (8.5-10.1); Osmolality,Calculated 271.1 MOS/KG (273-304); Potassium 4.6 MMOL/L (3.5-5.1)
[2018-01-17 06:11] LABS: Band Neutrophils 3 % (0-10); Giant Platelets Few; Hypochromasia 1+; Lymphocytes 12 % (20-55); Ovalocytes Slight; Platelet Estimate Decreased; Segmented Neutrophils 61 % (50-85); Total Cells Counted 100
[2018-01-17 06:12] LABS: Microcytosis Slight
[2018-01-17] MEDS: ALLOPURINOL 100 MG TABLET PO SCH (08:08)
[2018-01-17] MEDS: SUCRALFATE 1 GM/10 ML UDCUP PO SCH ×3 (08:08→15:38)
[2018-01-17] MEDS: SULFAMETHOX/TRIMETHOPRIM 800-160 MG TABLET PO SCH (08:08)
[2018-01-17] MEDS: METOPROLOL TARTRATE 25 MG TABLET PO SCH (08:09)
[2018-01-17] MEDS: FERROUS SULFATE 325 MG TABLET PO SCH (08:15)
[2018-01-17] MEDS ORDERED: MAGNESIUM SULF RIDER 4 GM in PREMIX 1 EACH IV ONE (09:44)
[2018-01-17] MEDS ORDERED: MAGNESIUM SULF RIDER 2 GM in PREMIX 1 EACH IV ONE (09:45)
[2018-01-17 16:15] VITALS: BP 143/81
[2018-01-20 17:16] LABS: Cryptosporidium Antigen Stool Negative (Negative)
== END 2018-01-17 16:55 | disposition home or self-care (01) | DRG 975 ==
LOC: N.EDINP 17:20 → N.ED 17:20 → SUATTDRO 23:35 → N.ICU 01-13 00:07
PROVIDERS: ADMIT Hospitalist; ATTEND Internal Medicine